=== PATIENT | male | born 1985 ===

== ENCOUNTER 2017-02-22 14:11 | Emergency (ER) | payer OTHER ==
[2017-02-22 14:23] VITALS: TEMP 98.8; O2SAT 98
[2017-02-22] MEDS ORDERED: Naproxen 550 mg Tab PO STA (14:44)
[2017-02-22] MEDS ORDERED: Naproxen 550 mg Tab PO ONE (14:51)
--- NOTE | 2017-02-22 15:22 | C.PDOC ---
History Of Present Illness 31 y/o male c/o right wrist pain for 1 month. Patient reports pain worse with movement, and when carrying certain objects. 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 Patient reports he sometimes wears a brace on the wrist. Denies rash, trauma, new weakness, new numbness, or other associated symptoms. Time Seen by Provider: 02/22/17 14:35 Chief Complaint (Nursing): Finger,Hand,&Wrist History Per: Patient History/Exam Limitations: no limitations Onset/Duration Of Symptoms: Days Current Symptoms Are (Timing): Still Present Quality: "Pain" Exacerbating Factor(s): Movement Recent travel outside of the [place]: No Past Medical History Reviewed: Historical Data, Nursing Documentation, Vital Signs Vital Signs: Last Vital Signs Temp 98.8 F 02/22/17 14:20 Pulse 69 02/22/17 15:50 Resp 17 02/22/17 15:50 BP 119/68 02/22/17 15:50 Pulse Ox 98 02/22/17 18:05 Family History: States: Unknown Family Hx - Social History Hx Alcohol Use: Yes Hx Substance Use: No - Immunization History Hx Tetanus Toxoid Vaccination: No Hx Influenza Vaccination: No Hx Pneumococcal Vaccination: No Review Of Systems Except As Marked, All Systems Reviewed And Found Negative. Constitutional: Negative for: Fever, Chills Musculoskeletal: Positive for: Other (right wrist pain) Skin: Negative for: Rash Neurological: Negative for: Weakness, Numbness Physical Exam - Physical Exam Appears: Non-toxic, No Acute Distress Skin: Normal Color, Warm, Dry Head: Atraumatic, Normacephalic Extremity: Tenderness (radial aspect of right wrist tenderness), Capillary Refill (< 2 sec.), No Deformity, No Swelling Extremity: Right: Limited ROM To Joint (Wrist: pain with ulnar deviation), Bilateral: Normal Color And Temperature Pulses: Left Radial: Normal, Right Radial: Normal Neurological/Psych: Oriented x3, Normal Motor, Normal Sensation ED Course And Treatment O2 Sat by Pulse Oximetry: 98 (RA) Pulse Ox Interpretation: Normal - Other Rad Right Wrist XR X-Ray: Viewed By Me, Read By Radiologist Interpretation: IMPRESSION: Negative ulnar variance. No fracture or dislocation. Progress Note: Treated with Naproxen. X-rays ordered and reviewed; no acute bony abnormality. On re-eval, patient reports improvement of pain. Advised follow up with orthopedist in 1-2 days. Medical Decision Making Medical Decision Making: Velcro wrist splint was applied by structural technician and checked me. Disposition - Disposition Referrals: Meilza Reyes MD [Staff Provider] - Disposition: HOME/ ROUTINE Disposition Time: 15:19 Condition: GOOD Additional Instructions: Follow up with the Orthopedist within 1-2 days. Return if worsened. 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 - Scribe Statement The provider has reviewed the documentation as recorded by the Scribe SM All medical record entries made by the Scribe were at my direction and personally dictated by me. I have reviewed the chart and agree that the record accurately reflects my personal performance of the history, physical exam, medical decision making, and the department course for this patient. I have also personally directed, reviewed, and agree with the discharge instructions and disposition.
[2017-02-22 15:51] VITALS: BP 119/68; PULSE 69; RESP 17
--- NOTE | 2017-02-22 16:19 | RAD ---
PROCEDURE: Right Wrist Radiographs. HISTORY: wrist injury/pain COMPARISON: None. FINDINGS: BONES: No acute fracture. Note is made of negative ulnar variance. JOINTS: Normal carpal alignment maintained. Evaluation somewhat limited due to steep obliquity of the oblique view. SOFT TISSUES: Normal. OTHER FINDINGS: None. IMPRESSION: Negative ulnar variance. No fracture or dislocation.
== END 2017-02-22 15:52 | disposition home or self-care (01) ==
LOC: C.ER 14:11
DX: M65.4 Radial styloid tenosynovitis [de Quervain] (principal)

== ENCOUNTER 2017-05-18 22:08 | Emergency (ER) | payer OTHER ==
[2017-05-18 22:25] VITALS: BP 102/67; PULSE 89; RESP 18; TEMP 99.3; O2SAT 99
--- NOTE | 2017-05-18 23:26 | C.PDOC ---
History Of Present Illness 31 year old male who presents to the emergency department with a complaint of flu-like symptoms including bodyaches subjective fever, cough and congestion ongoing for 6 days. Patient reported taking OTC cold medications with minimal relief. Denied any further medical complaints. PMD: none provided Time Seen by Provider: 05/18/17 22:34 Chief Complaint (Nursing): Cough, Cold, Congestion History Per: Patient History/Exam Limitations: no limitations Onset/Duration Of Symptoms: Days (x6) Current Symptoms Are (Timing): Still Present Past Medical History Reviewed: Historical Data, Nursing Documentation, Vital Signs Vital Signs: Last Vital Signs Temp 99.3 F 05/18/17 22:21 Pulse 89 05/18/17 22:21 Resp 18 05/18/17 22:21 BP 102/67 05/18/17 22:21 Pulse Ox 99 05/19/17 00:21 - Medical History PMH: No Chronic Diseases Denies: Chronic Kidney Disease Surgical History: No Surg Hx Family History: States: Unknown Family Hx - Social History Hx Alcohol Use: Yes Hx Substance Use: No - Immunization History Hx Tetanus Toxoid Vaccination: No Hx Influenza Vaccination: No Hx Pneumococcal Vaccination: No Review Of Systems Except As Marked, All Systems Reviewed And Found Negative. Constitutional: Positive for: Fever (subjective), Other (bodyache) Respiratory: Positive for: Cough, Other (congestion) Physical Exam - Physical Exam Appears: Well, No Acute Distress Skin: Normal Color, No Rash Nose: Normal Oral Mucosa: Moist Throat: Normal Cardiovascular: Rhythm Regular Respiratory: Normal Breath Sounds, No Decreased Breath Sounds, No Wheezing Gastrointestinal/Abdominal: Normal Exam, Soft, No Tenderness Neurological/Psych: Oriented x3, Normal Speech, Normal Cognition ED Course And Treatment O2 Sat by Pulse Oximetry: 99 (RA) Pulse Ox Interpretation: Normal Medical Decision Making Medical Decision Making: Initial Impression: Flu-like symptoms Pt in NAD, VSS. will continue current management and follow up in clinic Scribe Attestation: Documented by Oralia Aaron, acting as a scribe for Linda De Leon PA-C. Provider Scribe Attestation: All medical record entries made by the Scribe were at my direction and personally dictated by me. I have reviewed the chart and agree that the record accurately reflects my personal performance of the history, physical exam, medical decision making, and the department course for this patient. I have also personally directed, reviewed, and agree with the discharge instructions and disposition. Disposition Counseled Patient/Family Regarding: Diagnosis, Need For Followup - Disposition Referrals: [facility] [Outside] Disposition: HOME/ ROUTINE Disposition Time: 23:24 Condition: STABLE Additional Instructions: Continue current meds( Advil, dayquil) Increase PO fluids Bed rest Return to ER if worse Instructions: Viral Syndrome in Children (ED) Forms: [facility] (Israeli), Work Excuse - Clinical Impression Clinical Impression: Influenza-like illness
== END 2017-05-18 23:41 | disposition home or self-care (01) ==
LOC: C.ER 22:08
DX: J11.1 Influenza due to unidentified influenza virus with other respiratory manifestations (principal)

== ENCOUNTER 2017-07-10 22:08 | Emergency (ER) | payer OTHER ==
[2017-07-10 22:37] VITALS: RESP 18
[2017-07-10 22:45] LABS: BASO # 0.1 K/uL (0.0-0.2); BASO % 0.8 % (0.0-2.0); EOS # 0.3 K/uL (0.0-0.7); EOS % 3.6 % (0.0-4.0); LYMPH # 2.6 K/uL (1.0-4.3); MEAN CELL VOLUME 93.5 fL (80.0-94.0); MEAN CORPUSCULAR HEMOGLOBIN 31.9 pg (27.0-31.0); MEAN CORPUSCULAR HGB CONC 34.1 g/dL (33.0-37.0); MEAN PLATELET VOLUME 8.3 fL (7.2-11.7); MONO # 1.3 K/uL (0.0-0.8); MONO % 16.4 % (0.0-10.0); NEUT # 3.9 K/uL (1.8-7.0); NEUT % 47.2 % (50.0-75.0); NRBC % 0.1 % (0.0-2.0); RED CELL DISTRIBUTION WIDTH 12.6 % (11.5-14.5); WHITE BLOOD COUNT 8.2 K/uL (4.8-10.8)
[2017-07-10 22:53] LABS: PROTHROMBIN TIME 10.8 SECONDS (9.7-12.2)
[2017-07-10 22:57] LABS: ALB/GLOB RATIO 1.2 (1.0-2.1); ALT/SGPT 130 U/L (21-72); AST/SGOT 52 U/L (17-59); BLOOD UREA NITROGEN 16 mg/dL (9-20); CALCIUM 8.7 mg/dl (8.6-10.4); GFR AFRICAN-AMERICAN > 60; GFR NON-AFRICAN AMERICAN > 60
--- NOTE | 2017-07-10 23:14 | C.PDOC ---
History Of Present Illness 31 year old male presents to the ED for evaluation of chest pain that started this afternoon. Patient states feeling chest tightness that will last a few seconds. Patient states his chest pain is resolving now. Patient denies headache , nausea, vomit, dizziness, SOB. Time Seen by Provider: 07/10/17 22:26 Chief Complaint (Nursing): Chest Pain History Per: Patient History/Exam Limitations: no limitations Onset/Duration Of Symptoms: Hrs Current Symptoms Are (Timing): Gone Quality: Tightness Modifying Factors: None Exacerbating Factors: None Alleviating Factors: None Recent travel outside of the [place]: No Additional History Per: Patient Past Medical History Reviewed: Historical Data, Nursing Documentation, Vital Signs Vital Signs: Last Vital Signs Temp 98.8 F 07/10/17 22:19 Pulse 82 07/10/17 22:36 Resp 18 07/10/17 22:36 BP 120/70 07/10/17 22:36 Pulse Ox 100 07/10/17 23:15 - Medical History PMH: No Chronic Diseases Denies: Chronic Kidney Disease Surgical History: No Surg Hx Family History: States: Unknown Family Hx - Social History Hx Alcohol Use: Yes Hx Substance Use: No - Immunization History Hx Tetanus Toxoid Vaccination: No Hx Influenza Vaccination: No Hx Pneumococcal Vaccination: No Review Of Systems Except As Marked, All Systems Reviewed And Found Negative. Constitutional: Negative for: Sweats Cardiovascular: Positive for: Chest Pain Respiratory: Negative for: Cough, Shortness of Breath Physical Exam - Physical Exam Appears: Non-toxic, No Acute Distress Skin: Normal Color, Warm, Dry Head: Atraumatic, Normacephalic Eye(s): bilateral: Normal Inspection Nose: No Discharge Oral Mucosa: Moist Neck: Normal ROM, Supple Chest: Symmetrical Cardiovascular: Rhythm Regular, No Murmur Respiratory: Normal Breath Sounds, No Rales, No Rhonchi, No Wheezing Gastrointestinal/Abdominal: Soft, No Tenderness, No Guarding, No Rebound Extremity: Normal ROM, No Tenderness, No Swelling Neurological/Psych: Oriented x3 ED Course And Treatment - Laboratory Results Result Diagrams: 07/10/17 22:42 07/10/17 22:42 ECG: Interpreted By Me, Viewed By Me ECG Rhythm: Sinus Rhythm ECG Interpretation: Normal Rate From EC (BPM) O2 Sat by Pulse Oximetry: 100 (On RA) Pulse Ox Interpretation: Normal Medical Decision Making Medical Decision Making: Impression: Chest pain - atypcial pain - perc neg Plan: * EKG * CXR * Labs * UA pt reasessed symtpoms resovled cxr neg as read by me no ekg changes low HEART score. advise outpt fu returnprecautions Disposition - Disposition Referrals: [facility] [Outside] [facility] [Outside] [email or web address] [Outside] Andres Douglas MD [Staff Provider] - Disposition: HOME/ ROUTINE Disposition Time: 23:19 Condition: STABLE Additional Instructions: please follw up with your doctor. return to er with worsening symptoms or concerns. Instructions: Chest Pain Forms: [facility] (Faroese) - Clinical Impression Clinical Impression: Chest pain - Scribe Statement The provider has reviewed the documentation as recorded by the Scribe Freddy Harman All medical record entries made by the Scribe were at my direction and personally dictated by me. I have reviewed the chart and agree that the record accurately reflects my personal performance of the history, physical exam, medical decision making, and the department course for this patient. I have also personally directed, reviewed, and agree with the discharge instructions and disposition.
[2017-07-10 23:19] VITALS: BP 116/75; PULSE 85; TEMP 98.2
[2017-07-10 23:21] VITALS: O2SAT 100
--- NOTE | 2017-07-11 08:41 | RAD ---
HISTORY: chest pain COMPARISON: No prior. TECHNIQUE: Chest PA and lateral FINDINGS: LUNGS: No active pulmonary disease. PLEURA: No significant pleural effusion identified. No pneumothorax apparent. CARDIOVASCULAR: Normal. OSSEOUS STRUCTURES: No significant abnormalities. VISUALIZED UPPER ABDOMEN: Normal. OTHER FINDINGS: None. IMPRESSION: No active disease.
== END 2017-07-10 23:30 | disposition home or self-care (01) ==
LOC: C.ER 22:08
DX: R07.9 Chest pain, unspecified (principal)